=== PATIENT | female | born 1950 | race Caucasian/White ===

== ENCOUNTER 2021-01-15 11:13 | Outpatient (REF) | payer MEDICARE, SELFPAY | END 2021-01-15 11:14 | disposition home or self-care (01) | LOC: HO.LAB 11:13 | PROVIDERS: Visit Provider Nurse Practitioner Family | DX: N39.0 Urinary tract infection, site not specified (principal) | CPT/HCPCS: 87086 ==

== ENCOUNTER 2021-01-27 12:42 | Outpatient (REF) | payer MEDICARE, SELFPAY ==
[2021-01-27 14:12] LABS: MANUAL DIFF FLAG NO
[2021-01-27 14:25] LABS: Basophils Absolute Auto 0.1 X10*3/uL (0.0-0.2); Basophils Percent Auto 0.4 % (0-2); Eosinophils Absolute Auto 0.5 X10*3/uL (0.0-0.4); Eosinophils Percent Auto 2.3 % (0-4); Hematocrit 47.4 % (37-47); Hemoglobin 15.5 g/dl (12.0-16.0); Imm Gran Abs Auto 0.09 X10*3/uL (0.00-0.03); Imm Gran Pct Auto 0.5 % (0.0-0.4); Lymphocytes Absolute Auto 2.6 X10*3/uL (1.2-4.9); Lymphocytes Percent Auto 13.2 % (20-40); Mean Corpuscular HGB Conc 32.7 g/dl (31.0-35.0); Mean Corpuscular Hemoglobin 28.9 pg (27.0-33.0); Mean Corpuscular Volume 88.3 fL (80-98); Mean Platelet Volume 10.3 fL (9.4-12.3); Monocytes Absolute Auto 1.2 X10*3/uL (0.1-1.2); Monocytes Percent Auto 5.9 % (2-11); Neutrophils Absolute Auto 15.3 X10*3/uL (2.0-8.3); Neutrophils Percent Auto 77.7 % (45-73); Platelet Count 200 X10*3/uL (160-400); Red Blood Count 5.37 X10*6/uL (4.20-5.50); Red Cell Distribution Width 14.4 % (11.0-16.0); White Blood Count 19.7 X10*3/uL (4.8-10.8)
[2021-01-27 14:44] LABS: Anion Gap 14 (12-20); Blood Urea Nitrogen 12 mg/dL (9-16); Calcium 10.2 mg/dL (8.4-10.2); Carbon Dioxide 27 mmol/L (22-29); Chloride 99 mmol/L (96-108); Estimated Glomerular Filt Rate > 60; Glucose Random 84 mg/dL (60-115); Potassium 3.9 mmol/L (3.3-5.1); Sodium 136 mmol/L (135-145)
== END 2021-01-27 12:43 | disposition home or self-care (01) ==
LOC: HO.LAB 12:42
PROVIDERS: Visit Provider Nurse Practitioner Family
DX: N39.0 Urinary tract infection, site not specified (principal)
CPT/HCPCS: 36415; 80048; 85025; 87086

== ENCOUNTER 2021-01-27 13:00 | Outpatient (REF) | payer MEDICARE, SELFPAY | END 2021-01-27 13:01 | disposition home or self-care (01) | LOC: HO.HMGCLDS 13:00 | PROVIDERS: PCP Internal Medicine; Visit Provider Nurse Practitioner Family | DX: Z13.89 Encounter for screening for other disorder (principal) | CPT/HCPCS: 87086 ==

== ENCOUNTER 2021-04-17 06:02 | Outpatient (REF) | payer MEDICARE, SELFPAY ==
[2021-04-17 12:05] LABS: Alanine Aminotransferase 35 U/L (0-31); Anion Gap 13 (12-20); Blood Urea Nitrogen 12 mg/dL (9-16); Calcium 9.7 mg/dL (8.4-10.2); Carbon Dioxide 27 mmol/L (22-29); Chloride 105 mmol/L (96-108); Cholesterol 141 mg/dL; Estimated Glomerular Filt Rate > 60; Glucose Fasting 120 mg/dL (60-99); HDL Cholesterol 36 mg/dL; LDL Cholesterol Calculated 77 mg/dl; Potassium 4.4 mmol/L (3.3-5.1); Sodium 141 mmol/L (135-145); Triglycerides 144 mg/dL
[2021-04-17 12:28] LABS: Vitamin D 25-OH Total 52.7 ng/mL (>30)
== END 2021-04-17 06:03 | disposition home or self-care (01) ==
LOC: HO.HMGCLDS 06:02
PROVIDERS: PCP Internal Medicine; Visit Provider Internal Medicine
DX: I10 Essential (primary) hypertension (principal); E78.5 Hyperlipidemia, unspecified; E89.40 Asymptomatic postprocedural ovarian failure
CPT/HCPCS: 36415; 80048; 80061; 82306; 84460

== ENCOUNTER 2021-04-28 08:58 | Outpatient (REF) | payer MEDICARE, SELFPAY ==
--- NOTE | ~2021-04-28 | MM_ITS ---
EXAMINATION: MM SCREENING DIGITAL BREAST TOMOSYNTHESIS, BILATERAL CLINICAL INFORMATION: Screening. Asymptomatic. The lifetime risk of breast cancer based on the Tyrer-Cuzick Model is 3.1%. COMPARISON: Mammography: August 03, 2019 and studies dating back to October 07, 2009 TECHNIQUE: Digital breast tomosynthesis is performed in both the craniocaudal and mediolateral oblique views along with computer-aided detection (CAD). Synthesized 2D images are generated from the tomosynthesis. FINDINGS: The breasts are almost entirely fatty (ACR BI-RADS breast composition Category a). There are no significant masses, abnormal calcifications, or other abnormalities. MM/MM tomosynthesis screening BI IMPRESSION: There are no significant changes from prior study. ASSESSMENT: BI-RADS 1: Negative RECOMMENDATION: Routine annual mammography screening. This patient's information was entered into a reminder system with a target due date for their next mammogram.
== END 2021-04-28 08:59 | disposition home or self-care (01) ==
LOC: HO.MAMMO 08:58
PROVIDERS: Visit Provider Internal Medicine
DX: Z12.31 Encounter for screening mammogram for malignant neoplasm of breast (principal)
CPT/HCPCS: 77063; 77067

== ENCOUNTER 2021-10-20 11:36 | Outpatient (REF) | payer MEDICARE, SELFPAY ==
[2021-10-20 11:59] LABS: Binax Now Covid-19 Ag Negative (Negative)
[2021-10-20 12:00] LABS: Binax Internal Control QC Valid
== END 2021-10-20 11:37 | disposition home or self-care (01) ==
LOC: HO.HMGCLDS 11:36
PROVIDERS: PCP Internal Medicine; Visit Provider Internal Medicine
DX: Z13.89 Encounter for screening for other disorder (principal)

== ENCOUNTER 2021-12-28 07:16 | Outpatient (REF) | payer MEDICARE, SELFPAY ==
[2021-12-28 12:21] LABS: Alanine Aminotransferase 33 U/L (0-31); Aspartate Amino Transferase 17 U/L (5-31); Cholesterol 162 mg/dL; Glucose Fasting 124 mg/dL (60-99); HDL Cholesterol 44 mg/dL; LDL Cholesterol Calculated 90 mg/dl; Triglycerides 143 mg/dL
[2021-12-28 12:46] LABS: Vitamin D 25-OH Total 55.6 ng/mL (>30)
[2021-12-28 12:57] LABS: Estimated Average Glucose 120 mg/dL; Hemoglobin A1c % 5.8 %
== END 2021-12-28 07:17 | disposition home or self-care (01) ==
LOC: HO.HMGCLDS 07:16
PROVIDERS: Visit Provider Internal Medicine
DX: I10 Essential (primary) hypertension (principal); E78.5 Hyperlipidemia, unspecified; E89.40 Asymptomatic postprocedural ovarian failure; M85.89 Other specified disorders of bone density and structure, multiple sites; G43.909 Migraine, unspecified, not intractable, without status migrainosus; R73.01 Impaired fasting glucose
CPT/HCPCS: 36415; 80061; 82306; 82947; 83036; 84450; 84460

== ENCOUNTER → 2022-03-08 07:45 | Outpatient (BNVA) | payer MEDICARE, SELFPAY | PROVIDERS: PCP Internal Medicine; Visit Provider Physician Assistant | DX: Z12.11 Encounter for screening for malignant neoplasm of colon (principal); D12.6 Benign neoplasm of colon, unspecified | CPT/HCPCS: 99202 ==

== ENCOUNTER 2022-05-05 08:12 | Outpatient (REF) | payer MEDICARE, SELFPAY ==
--- NOTE | ~2022-05-05 | MM_ITS ---
EXAMINATION: BONE DENSITOMETRY CLINICAL INDICATION: Screening. COMPARISON: Previous BD dated 08/03/2019 and baseline BD dated 10/21/2006. TECHNIQUE: Using a Infectious DXA System (software version: 13.1) manufactured by [employer], dual-energy x-ray absorptiometry was performed of the lumbar spine and left hip. The images are of good technical quality. Summary results are attached. FINDINGS: AP SPINE L1-L4: Current: BMD 0.908 g/cm2, Z-score -0.3, T-score -2.3, osteopenia, 0.6% increase from previous, 3.8% increase from baseline (<5% change is not significant). Prior: BMD 0.903 g/cm2. Baseline: BMD 0.875 g/cm2. LEFT FEMUR, NECK: Current: BMD 0.829 g/cm2, Z-score 0.4, T-score -1.5, osteopenia. Prior: BMD 0.820 g/cm2. Baseline: BMD 0.891 g/cm2. LEFT FEMUR, TOTAL: Current: BMD 0.801 g/cm2, Z-score 0.1, T-score -1.6, osteopenia, 1.0% decrease from previous, 11.4% decrease from baseline (<5% change is not significant). Prior: BMD 0.809 g/cm2. Baseline: BMD 0.904 g/cm2. IDENTIFIED RISK FACTORS: Menopause, bilateral oophorectomy, hysterectomy, osteoporosis. HISTORY OF FRACTURE: None listed. MEDICATIONS: Calcium or multivitamin. Vitamin D. MM/XR DEXA axial skeleton IMPRESSION: 1. DIAGNOSIS: Osteopenia based on the lowest T-score value of -2.3 in the lumbar spine applying World Health Organization criteria. 2. 10-YEAR FRACTURE RISK PREDICTION, FRAX: Major osteoporotic fracture (clinical spine, forearm, hip or shoulder) 10.4%. Hip fracture 1.6%. 3. Treatment Recommendations: NOF guidelines recommend consideration for treatment in postmenopausal women and men age 50 and older presenting with the following: -A hip or vertebral (clinical or morphometric) fracture. -T-score less than or equal to -2.5 at the femoral neck or spine after appropriate evaluation to exclude secondary causes. -Low bone mass at the hip or spine and a 10-year fracture probability by FRAX of greater than or equal to 3% for hip fracture or greater than or equal to 20% for major osteoporotic fracture based on the [place] adapted WHO algorithm. 4. Other Recommendations: All treatment decisions require clinical judgment and consideration of individual patient factors, including patient preferences, comorbidities, previous drug use, risk factors not captured in the FRAX model (e.g. frailty, falls, vitamin D deficiency, increased bone turnover, interval significant decline in bone density) and possible under or overestimation of fracture risk by FRAX. Additional medical evaluation for secondary cause of low bone mineral density may be appropriate. FUTURE SCAN RECOMMENDATION: People with diagnosed cases of osteoporosis or at high risk for fracture should have regular bone mineral density tests. For patients eligible for Medicare, routine testing is allowed once every 2 years. The testing frequency can be increased to one year for patients who have rapidly progressing disease, those who are receiving or discontinuing medical therapy to restore bone mass, or have additional risk factors.
== END 2022-05-05 08:13 | disposition home or self-care (01) ==
LOC: HO.MAMMO 08:12
PROVIDERS: PCP Internal Medicine; Visit Provider Internal Medicine
DX: Z13.820 Encounter for screening for osteoporosis (principal); Z78.0 Asymptomatic menopausal state; M85.89 Other specified disorders of bone density and structure, multiple sites
CPT/HCPCS: 77080

== ENCOUNTER 2022-07-01 06:30 | Outpatient (REF) | payer MEDICARE, SELFPAY ==
[2022-07-01 11:36] LABS: Alanine Aminotransferase 37 U/L (0-31); Anion Gap 15 (12-20); Aspartate Amino Transferase 23 U/L (5-31); Blood Urea Nitrogen 12 mg/dL (9-16); Calcium 9.6 mg/dL (8.4-10.2); Carbon Dioxide 26 mmol/L (22-29); Chloride 101 mmol/L (96-108); Cholesterol 149 mg/dL; Estimated Glomerular Filt Rate > 60; Glucose Fasting 107 mg/dL (60-99); HDL Cholesterol 42 mg/dL; LDL Cholesterol Calculated 74 mg/dl; Potassium 4.5 mmol/L (3.3-5.1); Sodium 137 mmol/L (135-145); Triglycerides 169 mg/dL
[2022-07-01 12:01] LABS: Vitamin D 25-OH Total 55.2 ng/mL (>30)
== END 2022-07-01 06:31 | disposition home or self-care (01) ==
LOC: HO.HMGCLDS 06:30
PROVIDERS: PCP Internal Medicine; Visit Provider Internal Medicine
DX: E78.5 Hyperlipidemia, unspecified (principal); I10 Essential (primary) hypertension; M85.89 Other specified disorders of bone density and structure, multiple sites; R73.01 Impaired fasting glucose
CPT/HCPCS: 36415; 80048; 80061; 82306; 84450; 84460

== ENCOUNTER 2022-12-24 08:34 | Outpatient (REF) | payer MEDICARE, SELFPAY ==
--- NOTE | ~2022-12-24 | MM_ITS ---
EXAMINATION: MM SCREENING DIGITAL BREAST TOMOSYNTHESIS, BILATERAL CLINICAL INFORMATION: Screening. Asymptomatic. The lifetime risk of breast cancer based on the Tyrer-Cuzick Model is 3%. COMPARISON: Mammography: 04/28/2021, 08/03/2019, 07/12/2018 TECHNIQUE: Digital breast tomosynthesis is performed in both the craniocaudal and mediolateral oblique views along with computer-aided detection (CAD). Synthesized 2D images are generated from the tomosynthesis. FINDINGS: There are scattered areas of fibroglandular density (ACR BI-RADS breast composition Category b). There are no significant masses, abnormal calcifications, or other abnormalities. No architectural abnormality or developing density or significant change from prior studies. The axilla are unremarkable. There are some dermal lesions overlying both breasts. MM/MM tomosynthesis screening BI IMPRESSION: No mammographic evidence of malignancy. ASSESSMENT: BI-RADS 2: Benign RECOMMENDATION: Routine annual mammography screening. This patient's information was entered into a reminder system with a target due date for their next mammogram.
== END 2022-12-24 08:35 | disposition home or self-care (01) ==
LOC: HO.MAMMO 08:34
PROVIDERS: PCP Internal Medicine; Visit Provider Internal Medicine
DX: Z12.31 Encounter for screening mammogram for malignant neoplasm of breast (principal)
CPT/HCPCS: 77063; 77067

== ENCOUNTER 2023-01-03 06:31 | Outpatient (REF) | payer MEDICARE, SELFPAY ==
[2023-01-03 11:54] LABS: Alanine Aminotransferase 34 U/L (0-31); Anion Gap 14 (12-20); Aspartate Amino Transferase 17 U/L (5-31); Blood Urea Nitrogen 14 mg/dL (9-16); Calcium 9.5 mg/dL (8.4-10.2); Carbon Dioxide 27 mmol/L (22-29); Chloride 106 mmol/L (96-108); Cholesterol 147 mg/dL; Estimated Average Glucose 117 mg/dL; Estimated Glomerular Filt Rate > 60; Glucose Fasting 133 mg/dL (60-99); HDL Cholesterol 40 mg/dL; Hemoglobin A1C 144.8301 umol/L; Hemoglobin A1c % 5.7 %; LDL Cholesterol Calculated 70 mg/dl; Potassium 4.6 mmol/L (3.3-5.1); Sodium 142 mmol/L (135-145); Triglycerides 185 mg/dL; Vitamin D 25-OH Total 73.8 ng/mL (>30)
== END 2023-01-03 06:32 | disposition home or self-care (01) ==
LOC: HO.HMGCLDS 06:31
PROVIDERS: PCP Internal Medicine; Visit Provider Internal Medicine
DX: R73.01 Impaired fasting glucose (principal); M85.89 Other specified disorders of bone density and structure, multiple sites; M89.40 Other hypertrophic osteoarthropathy, unspecified site; E78.5 Hyperlipidemia, unspecified; I10 Essential (primary) hypertension
CPT/HCPCS: 36415; 80048; 80061; 82306; 83036; 84450; 84460

== ENCOUNTER 2023-07-05 10:50 | Outpatient (AMB) | payer MEDICARE, SELFPAY ==
--- NOTE | 2023-07-05 11:15 | A.OFFPC_ITS ---
Vital Signs 07/05/23 11:21 Height 4 ft 11 in Weight 129 lb BMI 26.1 BP 130/70 Blood Pressure Location Rt brachial Position Sitting Pulse 73 Pulse Source Pulse Oximeter Pulse Oximetry (%) 95 Oxygen Delivery Method Room Air Intake Visit Reasons: PE Intake Note: Pt is here today for her PE Allergies codeine [CODEINE] Allergy (Unknown, Verified 01/04/24 11:12) NAUSEA & VOMITING alendronate sodium [Fosamax] Adverse Reaction (Unknown, Verified 01/04/24 11:12) chest pain sumatriptan Adverse Reaction (Unknown, Verified 01/04/24 11:12) chest discomfort Medication List - Last Reconciled 07/05/23 by Sunshine Allen MD ascorbic acid (vitamin C) 1 g PO Q6H atorvastatin 20 mg PO DAILY [id number]-tushjjdxmbwes-jmse 50-300-40 mg 1 cap PO Q8H PRN cholecalciferol (vitamin D3) 6,000 units PO DAILY fluticasone propionate 50 mcg/actuation (Flonase Allergy Relief) 2 sprays intranasal DAILY folic acid 1 mg PO DAILY lactulose 15 mL PO DAILY PRN nortriptyline 50 mg PO BEDTIME propranolol ER 120 mg PO DAILY vitamin B complex 1 tab PO DAILY vitamin E (dl, acetate) 450 mg PO DAILY Tobacco use date assessed: 07/05/23 Fall risk assessment: No Falls in past year Last assessed Fall Risk: 07/05/23 Dental Screening Dental Screen Date: 07/05/23 Did you have a dental visit in the last 12 months?: No Did you have a dental problem in the last 6 months where you did not have access to dental care?: No Was dental information given to patient?: Patient has dentist HPI PE HPI Details Sade is here today for physical exam. She is taking atorvastatin 20 mg daily for control of her lipids. And takes Fioricet as needed for control of migraine headaches with propranolol ER 120 mg daily and nortriptyline 50 mg at bedtime for migraine prophylaxis. She is up-to-date with her screening mammogram done earlier this year with negative findings and showed osteopenia in lumbar spine on bone density scan done in 2021, no history of fractures. She stays active, does a lot of yd work and housework still History of adenomatous polyp in colon in the past on last colonoscopy done in [address] Foss., overdue for repeat colonoscopy. [facility] Medical History Chronic nasal congestion Impaired fasting glucose Migraine Osteopenia of multiple sites Tubular adenoma of colon Surgical menopause Dyslipidemia Essential hypertension Surgical History History of section Teratoma of left ovary History of total hysterectomy Family History Father CHF (congestive heart failure) Alcoholic Mother Diabetes mellitus Brother Myocardial infarction Brother Afib Carotid artery stenosis Maternal Grandmother Diabetes mellitus Brother No problems noted. Son No problems noted. Son No problems noted. Son Substance abuse Daughter No problems noted. Daughter No problems noted. Social History Housing: House Patient Tobacco Use Status: Former Tobacco user Tobacco use type: Cigarette Cigarette Packs Per Day: 1 Years Smoked: 20 e-Cigarette/Vaping Use: Never Used Second Hand Smoke Exposure: No service: No Current occupational status: retired Cognitive needs: No Hearing needs: No Vision needs: No Questionnaire PHQ-9 Over the last 2 weeks, how often have you been bothered by any of the following problems? 1. Little interest or pleasure in doing things: not at all 2. Feeling down, depressed, or hopeless: not at all 3. Trouble falling or staying asleep, or sleeping too much: not at all 4. Feeling tired or having little energy: not at all 5. Poor appetite or overeating: not at all 6. Feeling bad about yourself - or that you are a failure or have let yourself or your family down: not at all 7. Trouble concentrating on things, such as reading the newspaper or watching television: not at all 8. Moving or speaking so slowly that other people could have noticed. Or the opposite - being so fidgety or restless that you have been moving around a lot more than usual: not at all 9. Thoughts that you would be better off or of hurting yourself in some way: not at all Total score: 0 Depression Screening Interpretation: Negative Depression Screening Done: Yes 19336 - PHQ-9 Billing: Yes Source: Developed by Drs. James Crocker, Yamilet Tadeo, Ernesto Chand and colleagues, with an educational zita from [employer]. Thrive Questionnaire Date Thrive assessed: 07/05/23 I am a: Patient What is your living situation today?: I have a steady place to live Within the past 12 months, did the food you bought not last and you didn't have the money to get more?: Never true Within the past 12 months, did you worry whether your food would run out before you got money to buy more?: Never true Do you have trouble paying for medicines?: No Do you have trouble getting transportation to medical appointments?: No Do you have trouble paying your heating and electricity bill?: No Do you have trouble taking care of your child, family member or friend?: No Do you have trouble with day-to-day activities such as bathing, preparing meals, shopping, managing finances, etc.?: No Are you currently unemployed and looking for a job?: No Are you interested in more education?: No AUDIT C Alcohol Use Questionnaire (AUDIT-C) 1. How often do you have a drink containing alcohol?: Never Total Score: 0 GILMA-7 AMB Questionnaire GIMLA-7 Date GILMA - 7 assessed: 01/04/23 Feeling nervous, anxious, or on edge: 1 = Several days Not being able to stop or control worryin = Not at all Worrying too much about different things: 0 = Not at all Trouble relaxin = Not at all Being so restless that it is hard to sit still: 0 = Not at all Becoming easily annoyed or irritable: 0 = Not at all Feeling afraid as if something awful might happen: 1 = Several days Total GILMA-7 score (0-4 normal; 5-9 mild; 10-14 moderate; 15-21 severe): 2 Source: Developed by Drs. James Crocker, Yamilet Tadeo, Ernesto Chand and colleagues, with an educational zita from [employer]. GILMA-7 Assessment Billing GILMA-7 Assessment Tool: GILMA-7 Assessment 66950 Review of Systems Const Denies body aches, Denies fatigue, Denies fever(s) and Denies weakness ENT Denies dizziness, Denies nasal congestion, Denies nasal discharge and Denies sore throat Card Denies chest pain, Denies lightheadedness, Denies palpitations and Denies dyspnea Resp Denies chest congestion, Denies cough and Denies dyspnea GI Denies abdominal pain, Denies change in bowel habits and Denies heartburn Reports no additional complaints Musc Reports no additional complaints Skin/Breast Denies breast pain, Denies breast mass and Denies rash Neuro Denies dizziness and Denies weakness Psych Reports no additional complaints Endo Denies fatigue, Denies polydipsia, Denies polyuria and Denies palpitations Jayme/Lymph Reports no additional complaints Aller/Immun Reports no additional complaints Physical exam (Primary Care) Vital Signs: Last Vital Signs Pulse 73 07/05/23 11:21 BP 130/70 07/05/23 11:21 Pulse Ox 95 07/05/23 11:21 Oxygen Delivery Method Room Air 07/05/23 11:21 BMI result Body Mass Index 26.1 Tobacco/Smoking Status: Tobacco use Status Tobacco use date assessed 07/05/23 07/05/23 11:23 Patient Tobacco Use Status Former Tobacco user 07/05/23 11:15 Tobacco use type Cigarette 07/05/23 11:15 e-Cigarette/Vaping Use Never Used 07/05/23 11:15 PHQ-9: PHQ-9 Score PHQ-9: Total score 0 07/05/23 12:05 Depression Screening Interpretation: Negative Thrive Assessment: Date of Thrive Assessment Date Thrive assessed 07/05/23 07/05/23 11:23 Const General: comfortable and no acute distress Orientation/consciousness: patient oriented x3 [facility] General nose exam: Normal external nose present, Normal nares present and No nasal discharge present Face and sinus: Yes face symmetric Eyes General: appearance normal, both eyes and all related structures Neck Neck: Yes full ROM, Yes no lymphadenopathy and Yes supple Thyroid: Thyroid normal Resp Auscultation: clear to auscultation bilaterally Cardio Rate: regular rate Rhythm: regular rhythm Heart sounds: S1 normal heart sound present and S2 normal heart sound present GI Palpation (GI): Soft to palpation, nontender, no guarding and no masses Auscultation: normal bowel sounds Neuro General: patient oriented x3, gait normal, moves all extremities, no focal motor deficits and CN's II-XI intact bilaterally Extrem General: Yes full ROM, Yes no joint enlargement, Yes no pedal edema and Yes normal gait Immunizations pneumoc 20-lacey conj-dip cr(PF) 0.5 mL IM syringe Performing Provider: Sunshine Allen MD Performing Location: [facility] Administered by: Brook Brooks CMA on 07/05/23 12:05 Dose Route Admin Location Dispensed Lot Number Expiration Date NDC Drier Tender 0.5 mL IM Right Deltoid 0.5 mL [id number] 07/26/24 0771-8011-45 [employer]/PFIZER VIS Given Date VIS Provided VIS Publication Date 07/05/23 Single Vaccine 21 Eligibility Eligibility Date Funding Source Not VFC Eligible 07/05/23 Private Assessment and Plan Assessment & Plan (1) Annual visit for general adult medical examination with abnormal findings: Code(s): Z00.01 - Encounter for general adult medical examination with abnormal findings Plan: Will check appropriate labs. She gets regular eye exams at [facility]. Take adequate calcium in diet and vitamin-D 3 at 2000 IU per cap once a day, in addition to weight-bearing exercises to help maintain good muscle tone and weight control. Instructed to do self-breast exam, and continue to get yearly mammogram, currently up-to-date, will repeat another bone density scan next year . Patient already received her COVID booster for this year and flu shot, Prevnar 20 given today. Declines getting shingles vaccine . (2) Tubular adenoma of colon: Comment: Overdue polyp surveillance-reinforced importance of follow through Code(s): D12.6 - Benign neoplasm of colon, unspecified Plan: GI consult obtained, patient prefers female provider (3) Impaired fasting glucose: Code(s): R73.01 - Impaired fasting glucose Plan: Your fasting blood sugars elevated above 100 mg/dL. Impaired glucose metabolism O2 at risk for developing diabetes mellitus type 2, as well as heart attack and stroke later on. Lifestyle changes at just weight loss, healthy eating habits, and regular exercise are important, and can prevent the progression to diabetes (4) Migraine: Code(s): G43.909 - Migraine, unspecified, not intractable, without status migrainosus Qualifiers: Intractability: not intractable Migraine type: unspecified Status migrainosus presence: without status migrainosus Qualified Code(s): G43.909 - Migraine, unspecified, not intractable, without status migrainosus Plan: Currently on Fioricet taken as needed (5) Osteopenia of multiple sites: Code(s): M85.89 - Other specified disorders of bone density and structure, multiple sites Plan: Advised to do regular weight-bearing exercise, continue taking calcium from dietary sources and continue vitamin-D 3 supplements. Will repeat another bone density scan next year (6) Dyslipidemia: Code(s): E78.5 - Hyperlipidemia, unspecified Plan: Continue atorvastatin, fasting lipid panel ordered. Reminded to get her fasting labs done already ordered and in lab (7) Essential hypertension: Code(s): I10 - Essential (primary) hypertension Plan: Blood pressure at goal of less than 130/80. Continue with current medication. Reinforced importance of following a low sodium diet, getting regular exercise, and lowering stress levels. Orders: Orders Pneumococcal 20 Immunization 07/05/23 Z23 - Encounter for immunization Complete Blood Count Auto Diff 07/05/23 Z00.01 - Encounter for general adult medical examination with abnormal findings Referrals Gastroenterology Referral D12.6 - Benign neoplasm of colon, unspecified Coding Level of Care Code Est Pt Prev Care >65y(75858) Diagnoses Annual visit for general adult medical examination with abnormal findings Z00.01 Tubular adenoma of colon D12.6 Impaired fasting glucose R73.01 Migraine without status migrainosus, not intractable, unspecified migraine type G43.909 Intractability: not intractable Migraine type: unspecified Status migrainosus presence: without status migrainosus Osteopenia of multiple sites M85.89 Dyslipidemia E78.5 Essential hypertension I10 Additional Codes GILMA-7 Assessment Billing - GILMA-7 Assessment Tool: GILMA-7 Assessment 60206 ([id number])
[2023-07-05 11:21] VITALS: BP 130/70; PULSE 73; O2SAT 95; BMI 26.1
== END 2023-07-05 12:08 | disposition home or self-care (01) ==
PROVIDERS: Visit Provider Internal Medicine
DX: Z00.01 Encounter for general adult medical examination with abnormal findings (principal); D12.6 Benign neoplasm of colon, unspecified; R73.01 Impaired fasting glucose; G43.909 Migraine, unspecified, not intractable, without status migrainosus; M85.89 Other specified disorders of bone density and structure, multiple sites; E78.5 Hyperlipidemia, unspecified; I10 Essential (primary) hypertension
CPT/HCPCS: 90471; 90677; 99499

== ENCOUNTER 2023-10-31 07:33 | Outpatient (REF) | payer MEDICARE, SELFPAY ==
[2023-10-31 11:39] LABS: MANUAL DIFF FLAG NO
[2023-10-31 11:42] LABS: Basophils Percent Auto 0.5 % (0-2); Eosinophils Absolute Auto 0.4 X10*3/uL (0.0-0.4); Hematocrit 42.2 % (37.0-47.0); Hemoglobin 14.3 g/dl (12.0-16.0); Imm Gran Abs Auto 0.01 X10*3/uL (0.00-0.03); Imm Gran Pct Auto 0.2 % (0.0-0.4); Lymphocytes Absolute Auto 2.3 X10*3/uL (1.2-4.9); Lymphocytes Percent Auto 36.9 % (20-40); Mean Corpuscular HGB Conc 33.9 g/dl (31.0-35.0); Mean Corpuscular Volume 85.6 fL (80.0-98.0); Mean Platelet Volume 10.3 fL (9.4-12.3); Monocytes Absolute Auto 0.6 X10*3/uL (0.1-1.2); Monocytes Percent Auto 10.1 % (2-11); Neutrophils Absolute Auto 2.9 x10*3/uL (2.0-8.3); Neutrophils Percent Auto 46.3 % (45-73); Platelet Count 183 X10*3/uL (160-400); Red Blood Count 4.93 X10*6/uL (4.20-5.50); Red Cell Distribution Width 14.1 % (11.0-16.0); White Blood Count 6.3 X10*3/uL (4.8-10.8)
[2023-10-31 12:03] LABS: Estimated Average Glucose 114 mg/dL; Hemoglobin A1c % 5.6 % (<6.0)
[2023-10-31 12:17] LABS: Alanine Aminotransferase 31 U/L (0-31); Anion Gap 15 (12-20); Aspartate Amino Transferase 16 U/L (5-31); Blood Urea Nitrogen 12 mg/dL (9-16); Calcium 9.6 mg/dL (8.4-10.2); Carbon Dioxide 24 mmol/L (22-29); Chloride 106 mmol/L (96-108); Cholesterol 155 mg/dL (<200); Estimated Glomerular Filt Rate > 60; Glucose Fasting 115 mg/dL (60-99); HDL Cholesterol 41 mg/dL (>40); LDL Cholesterol Calculated 78 mg/dL (<100); Potassium 4.2 mmol/L (3.3-5.1); Sodium 141 mmol/L (135-145); Triglycerides 180 mg/dL (<150)
== END 2023-10-31 07:34 | disposition home or self-care (01) ==
LOC: HO.HMGCLDS 07:33
PROVIDERS: PCP Internal Medicine; Visit Provider Internal Medicine
DX: Z00.01 Encounter for general adult medical examination with abnormal findings (principal); I10 Essential (primary) hypertension; R73.01 Impaired fasting glucose; E78.5 Hyperlipidemia, unspecified
CPT/HCPCS: 36415; 80048; 80061; 83036; 84450; 84460; 85025

== ENCOUNTER 2024-01-04 10:20 | Outpatient (AMB) | payer MEDICARE, SELFPAY ==
--- NOTE | 2024-01-04 10:40 | A.OFFPC_ITS ---
Vital Signs 01/04/24 10:43 Height 4 ft 11 in Weight 131 lb BMI 26.5 BP 122/80 Blood Pressure Location Rt brachial Position Sitting Pulse 85 Pulse Source Pulse Oximeter Pulse Oximetry (%) 95 Oxygen Delivery Method Room Air Intake Visit Reasons: 6 month follow up Intake Note: Pt is here today for her 6 months f/u Allergies codeine [CODEINE] Allergy (Unknown, Verified 01/04/24 11:12) NAUSEA & VOMITING alendronate sodium [Fosamax] Adverse Reaction (Unknown, Verified 01/04/24 11:12) chest pain sumatriptan Adverse Reaction (Unknown, Verified 01/04/24 11:12) chest discomfort Medication List - Last Reconciled 01/04/24 by Sunshine Allen MD ascorbic acid (vitamin C) 1 g PO Q6H atorvastatin 20 mg PO DAILY kjayzxsmok-udfqqgtndszdx-bwro 50-300-40 mg 1 cap PO Q8H PRN cholecalciferol (vitamin D3) 6,000 units PO DAILY fluticasone propionate 50 mcg/actuation (Flonase Allergy Relief) 2 sprays intranasal DAILY folic acid 1 mg PO DAILY lactulose 15 mL PO DAILY PRN nortriptyline 50 mg PO BEDTIME propranolol ER 120 mg PO DAILY vitamin B complex 1 tab PO DAILY vitamin E (dl, acetate) 450 mg PO DAILY Tobacco use date assessed: 01/04/24 Fall risk assessment: No Falls in past year Last assessed Fall Risk: 01/04/24 Dental Screening Dental Screen Date: 01/04/24 Did you have a dental visit in the last 12 months?: No Was dental information given to patient?: Patient declined HPI 6 month follow up HPI Details 73-year-old lady here today for follow-u p on her hypertension, hyperlipidemia and migraine headaches.. Has been taking her medications as directed, compliant with taking it and adhering to healthy eating habits and getting regular exercise. Has been feeling well with no new complaints at present time. [facility] Medical History Chronic nasal congestion Impaired fasting glucose Migraine Osteopenia of multiple sites Tubular adenoma of colon Surgical menopause Dyslipidemia Essential hypertension Surgical History History of section Teratoma of left ovary History of total hysterectomy Family History Father CHF (congestive heart failure) Alcoholic Mother Diabetes mellitus Brother Myocardial infarction Brother Afib Carotid artery stenosis Maternal Grandmother Diabetes mellitus Brother No problems noted. Son No problems noted. Son No problems noted. Son Substance abuse Daughter No problems noted. Daughter No problems noted. Social History Housing: House Patient Tobacco Use Status: Former Tobacco user Tobacco use type: Cigarette Cigarette Packs Per Day: 1 Years Smoked: 20 e-Cigarette/Vaping Use: Never Used Second Hand Smoke Exposure: No service: No Current occupational status: retired Cognitive needs: No Hearing needs: No Vision needs: No Questionnaire PHQ-9 Over the last 2 weeks, how often have you been bothered by any of the following problems? 1. Little interest or pleasure in doing things: not at all 2. Feeling down, depressed, or hopeless: not at all 3. Trouble falling or staying asleep, or sleeping too much: not at all 4. Feeling tired or having little energy: not at all 5. Poor appetite or overeating: not at all 6. Feeling bad about yourself - or that you are a failure or have let yourself or your family down: not at all 7. Trouble concentrating on things, such as reading the newspaper or watching television: not at all 8. Moving or speaking so slowly that other people could have noticed. Or the opposite - being so fidgety or restless that you have been moving around a lot more than usual: not at all 9. Thoughts that you would be better off or of hurting yourself in some way: not at all Total score: 0 Depression Screening Interpretation: Negative Depression Screening Done: Yes 85593 - PHQ-9 Billing: Yes Source: Developed by Drs. James Crocker, Yamilet Tadeo, Ernesto Chand and colleagues, with an educational zita from [employer]. Thrive Questionnaire Date Thrive assessed: 01/04/24 I am a: Patient What is your living situation today?: I have a steady place to live Within the past 12 months, did the food you bought not last and you didn't have the money to get more?: Never true Within the past 12 months, did you worry whether your food would run out before you got money to buy more?: Never true Do you have trouble paying for medicines?: No Do you have trouble getting transportation to medical appointments?: No Do you have trouble paying your heating and electricity bill?: No Do you have trouble taking care of your child, family member or friend?: No Do you have trouble with day-to-day activities such as bathing, preparing meals, shopping, managing finances, etc.?: No Are you currently unemployed and looking for a job?: No Are you interested in more education?: No THRIVE Score: 0 AUDIT C Alcohol Use Questionnaire (AUDIT-C) 1. How often do you have a drink containing alcohol?: Never 3. How often do you have six or more drinks on one occasion?: Never Total Score: 0 GILMA-7 AMB Questionnaire GILMA-7 Date GILMA - 7 assessed: 01/04/24 Feeling nervous, anxious, or on edge: 1 = Several days Not being able to stop or control worryin = Several days Worrying too much about different things: 0 = Not at all Trouble relaxin = Not at all Being so restless that it is hard to sit still: 0 = Not at all Becoming easily annoyed or irritable: 0 = Not at all Feeling afraid as if something awful might happen: 1 = Several days Total GILMA-7 score (0-4 normal; 5-9 mild; 10-14 moderate; 15-21 severe): 3 Source: Developed by Drs. James Crocker, Yamilet Tadeo, Ernesto Chand and colleagues, with an educational zita from [employer]. Review of Systems Const Denies body aches, Denies fatigue, Denies fever(s) and Denies weakness ENT Denies dizziness, Denies nasal congestion, Denies nasal discharge and Denies sore throat Card Denies chest pain, Denies lightheadedness, Denies palpitations and Denies dyspnea Resp Denies chest congestion, Denies cough and Denies dyspnea GI Denies abdominal pain, Denies change in bowel habits and Denies heartburn Reports no additional complaints Musc Reports no additional complaints Neuro Denies dizziness and Denies weakness Endo Denies fatigue, Denies polydipsia, Denies polyuria and Denies palpitations Jayme/Lymph Reports no additional complaints Aller/Immun Reports no additional complaints Physical exam (Primary Care) Vital Signs: Last Vital Signs Pulse 85 01/04/24 10:43 BP 122/80 01/04/24 10:43 Pulse Ox 95 01/04/24 10:43 Oxygen Delivery Method Room Air 01/04/24 10:43 BMI result Body Mass Index 26.5 Tobacco/Smoking Status: Tobacco use Status Tobacco use date assessed 01/04/24 01/04/24 10:44 Patient Tobacco Use Status Former Tobacco user 01/04/24 10:44 Tobacco use type Cigarette 01/04/24 10:44 e-Cigarette/Vaping Use Never Used 01/04/24 10:44 PHQ-9: PHQ-9 Score PHQ-9: Total score 0 01/04/24 11:28 Depression Screening Interpretation: Negative Thrive Assessment: Date of Thrive Assessment Date Thrive assessed 01/04/24 01/04/24 10:44 Const General: comfortable and no acute distress Orientation/consciousness: patient oriented x3 [facility] General nose exam: Normal external nose present, Normal nares present and No nasal discharge present Face and sinus: Yes face symmetric Eyes General: appearance normal, both eyes and all related structures Neck Neck: Yes full ROM, Yes no lymphadenopathy and Yes supple Thyroid: Thyroid normal Resp Auscultation: clear to auscultation bilaterally Cardio Rate: regular rate Rhythm: regular rhythm Heart sounds: S1 normal heart sound present and S2 normal heart sound present GI Palpation (GI): Soft to palpation, nontender, no guarding and no masses Auscultation: normal bowel sounds Neuro General: patient oriented x3, gait normal, moves all extremities, no focal motor deficits and CN's II-XI intact bilaterally Extrem General: Yes full ROM, Yes no joint enlargement, Yes no pedal edema and Yes normal gait Assessment and Plan Assessment & Plan (1) Dyslipidemia: Code(s): E78.5 - Hyperlipidemia, unspecified Plan: Ordered fasting lipid panel and liver enzymes, meantime continue with current dose of atorvastatin 20 mg once a day, in addition to adhering to healthy eating habits and getting regular exercise at least 15 minutes of cardio 3 to 4 times a week. (2) Essential hypertension: Code(s): I10 - Essential (primary) hypertension Plan: Blood pressure at goal of less than 130/80. Continue with current medication. Reinforced importance of following a low sodium diet, getting regular exercise, and lowering stress levels. (3) Surgical menopause: Code(s): E89.40 - Asymptomatic postprocedural ovarian failure Plan: Will check vitamin-D level (4) Migraine: Code(s): G43.909 - Migraine, unspecified, not intractable, without status migrainosus Qualifiers: Intractability: not intractable Migraine type: unspecified Status carlos rainosus presence: without status migrainosus Qualified Code(s): G43.909 - Migraine, unspecified, not intractable, without status migrainosus Plan: Takes propranolol ER 120 mg daily and nortriptyline 50 mg at bedtime, taking iuqvtvzi-fdizoqdiyoriu-[id number], advised to take it only as needed for episodes of acute migraine headaches, and not to take it on a regular basis. Orders: Orders Varicella IgG Antibody 01/04/24 Z78.0 - Asymptomatic menopausal state, Z01.84 - Encounter for antibody response examination Vitamin D 25-OH Total 01/04/24 Z78.0 - Asymptomatic menopausal state, Z01.84 - Encounter for antibody response examination Comprehensive Addy. Panel Fast 01/04/24 R73.01 - Impaired fasting glucose, G43.909 - Migraine, unspecified, not intractable, without status migrainosus, M85.89 - Other specified disorders of bone density and structure, multiple sites, E89.40 - Asymptomatic postprocedural ovarian failure, E78.5 - Hyperlipidemia, unspecified, I10 - Essential (primary) hypertension Lipid Panel 01/04/24 R73.01 - Impaired fasting glucose, G43.909 - Migraine, unspecified, not intractable, without status migrainosus, M85.89 - Other specified disorders of bone density and structure, multiple sites, E89.40 - Asymptomatic postprocedural ovarian failure, E78.5 - Hyperlipidemia, unspecified, I10 - Essential (primary) hypertension Vitamin D 25-OH Total 06/26/24 R73.01 - Impaired fasting glucose, G43.909 - Migraine, unspecified, not intractable, without status migrainosus, M85.89 - Other specified disorders of bone density and structure, multiple sites, E89.40 - Asymptomatic postprocedural ovarian failure, E78.5 - Hyperlipidemia, unspecified, I10 - Essential (primary) hypertension Coding Level of Care Code Est Pt Level 4 (40788) Complex EM visit Add On G2211 Diagnoses Dyslipidemia E78.5 Essential hypertension I10 Surgical menopause E89.40 Migraine without status migrainosus, not intractable, unspecified migraine type G43.909 Intractability: not intractable Migraine type: unspecified Status migrainosus presence: without status migrainosus
[2024-01-04 10:43] VITALS: BP 122/80; PULSE 85; O2SAT 95; BMI 26.5
== END 2024-01-04 12:35 | disposition home or self-care (01) ==
PROVIDERS: PCP Internal Medicine; Visit Provider Internal Medicine
DX: E78.5 Hyperlipidemia, unspecified (principal); I10 Essential (primary) hypertension; E89.40 Asymptomatic postprocedural ovarian failure; G43.909 Migraine, unspecified, not intractable, without status migrainosus
CPT/HCPCS: 99214; G2211

== ENCOUNTER 2024-01-04 11:28 | Outpatient (REF) | payer MEDICARE, SELFPAY ==
[2024-01-04 14:36] LABS: Alanine Aminotransferase 39 U/L (0-31); Albumin Level 4.6 g/dL (3.5-5.0); Alkaline Phosphatase 74 U/L (39-117); Anion Gap 14 (12-20); Aspartate Amino Transferase 25 U/L (5-31); Bilirubin Total 0.5 mg/dL (0.0-1.0); Blood Urea Nitrogen 12 mg/dL (9-16); Calcium 9.7 mg/dL (8.4-10.2); Carbon Dioxide 28 mmol/L (22-29); Chloride 105 mmol/L (96-108); Cholesterol 155 mg/dL (<200); Estimated Glomerular Filt Rate > 60; Glucose Fasting 116 mg/dL (60-99); HDL Cholesterol 40 mg/dL (>40); LDL Cholesterol Calculated 72 mg/dL (<100); Potassium 4.3 mmol/L (3.3-5.1); Sodium 143 mmol/L (135-145); Total Protein 7.4 g/dL (6.5-8.0); Triglycerides 215 mg/dL (<150)
[2024-01-04 14:37] LABS: Vitamin D 25-OH Total 105.9 ng/mL (>30)
== END 2024-01-04 11:29 | disposition home or self-care (01) ==
LOC: HO.HMGCLDS 11:28
PROVIDERS: PCP Internal Medicine; Visit Provider Internal Medicine
DX: Z01.84 Encounter for antibody response examination (principal); R73.01 Impaired fasting glucose; G43.909 Migraine, unspecified, not intractable, without status migrainosus; M85.89 Other specified disorders of bone density and structure, multiple sites; E89.40 Asymptomatic postprocedural ovarian failure; E78.5 Hyperlipidemia, unspecified; I10 Essential (primary) hypertension; Z78.0 Asymptomatic menopausal state
CPT/HCPCS: 36415; 80053; 80061; 82306; 86787

== ENCOUNTER 2024-02-14 07:14 | Outpatient (REF) | payer MEDICARE, SELFPAY | END 2024-02-14 07:15 | disposition home or self-care (01) | LOC: HO.MAMMO 07:14 | PROVIDERS: PCP Internal Medicine; Visit Provider Internal Medicine | DX: Z12.31 Encounter for screening mammogram for malignant neoplasm of breast (principal) | CPT/HCPCS: 77063; 77067 ==

== ENCOUNTER → 2024-02-14 07:30 | Outpatient (BNV) | payer MEDICARE, SELFPAY | PROVIDERS: PCP Internal Medicine; Visit Provider Radiology Diagnostic Radiology | DX: Z12.31 Encounter for screening mammogram for malignant neoplasm of breast (principal) | CPT/HCPCS: 77063; 77067 ==

== ENCOUNTER 2024-07-18 10:50 | Outpatient (AMB) | payer MEDICARE, SELFPAY ==
[2024-07-18 10:58] VITALS: BP 138/80; PULSE 77; O2SAT 95; BMI 26.9
--- NOTE | 2024-07-18 10:58 | A.OFFPC_ITS ---
Vital Signs 07/18/24 10:58 Height 4 ft 11 in Weight 133 lb BMI 26.9 BP 138/80 Blood Pressure Location Rt brachial Position Sitting Pulse 77 Pulse Source Pulse Oximeter Pulse Oximetry (%) 95 Oxygen Delivery Method Room Air Intake Visit Reasons: PE Intake Note: Pt is here today for her PE: Last mammogram 02/14/24, bone density scan 05/05/22, colonoscopy 12/21/11 Allergies codeine [CODEINE] Allergy (Unknown, Verified 07/18/24 11:16) NAUSEA & VOMITING alendronate sodium [Fosamax] Adverse Reaction (Unknown, Verified 07/18/24 11:16) chest pain sumatriptan Adverse Reaction (Unknown, Verified 07/18/24 11:16) chest discomfort Medication List - Last Reconciled 07/18/24 by Sunshine Allen MD ascorbic acid (vitamin C) 1 g PO Q6H atorvastatin 20 mg PO DAILY pltttwdmfk-ntiwurrkeotaf-aqcx 50-300-40 mg 1 cap PO Q8H PRN cholecalciferol (vitamin D3) 6,000 units PO DAILY fluticasone propionate 50 mcg/actuation (Flonase Allergy Relief) 2 sprays intranasal DAILY folic acid 1 mg PO DAILY lactulose 15 mL PO DAILY PRN nortriptyline 50 mg PO BEDTIME propranolol ER 120 mg PO DAILY vitamin B complex 1 tab PO DAILY vitamin E (dl, acetate) 450 mg PO DAILY Tobacco use date assessed: 07/18/24 Fall risk assessment: No Falls in past year Last assessed Fall Risk: 07/18/24 Dental Screening Dental Screen Date: 07/18/24 Did you have a dental visit in the last 12 months?: No Did you have a dental problem in the last 6 months where you did not have access to dental care?: No Was dental information given to patient?: Patient declined HPI PE HPI Details 74 year-old lady with past medical histo ry significant for hypertension, hyperlipidemia , osteopenia of multiple sites and migraine headaches, recurrent diarrhea here today for her physical exam. She is up-to-date with her screening done 02/14/24, her last bone density scan was done 05/05/22, and screening colonoscopy was done last 12/21/11. [facility] Medical History (Updated 07/18/24 @ 11:25 by Sunshine Allen MD) History of adenomatous polyp of colon Chronic nasal congestion Impaired fasting glucose Migraine Osteopenia of multiple sites Tubular adenoma of colon Surgical menopause Dyslipidemia Essential hypertension Surgical History History of section Teratoma of left ovary History of total hysterectomy Family History Father CHF (congestive heart failure) Alcoholic Mother Diabetes mellitus Brother Myocardial infarction Brother Afib Carotid artery stenosis Maternal Grandmother Diabetes mellitus Brother No problems noted. Son No problems noted. Son No problems noted. Son Substance abuse Daughter No problems noted. Daughter No problems noted. Social History Housing: House Patient Tobacco Use Status: Former Tobacco user Tobacco use type: Cigarette Cigarette Packs Per Day: 1 Years Smoked: 20 e-Cigarette/Vaping Use: Never Used Second Hand Smoke Exposure: No service: No Current occupational status: retired Cognitive needs: No Hearing needs: No Vision needs: No Questionnaire PHQ-9 Over the last 2 weeks, how often have you been bothered by any of the following problems? Depression Screening Interpretation: Negative Depression Screening Done: Yes Source: Developed by Drs. James Crocker, Yamilet Tadeo, Ernesto Chand and colleagues, with an educational zita from [employer]. Thrive Questionnaire Date Thrive assessed: 07/11/24 I am a: Patient What is your living situation today?: I have a steady place to live Within the past 12 months, did the food you bought not last and you didn't have the money to get more?: Never true Within the past 12 months, did you worry whether your food would run out before you got money to buy more?: Never true Do you have trouble paying for medicines?: No Do you have trouble getting transportation to medical appointments?: No Do you have trouble paying your heating and electricity bill?: No Do you have trouble taking care of your child, family member or friend?: No Do you have trouble with day-to-day activities such as bathing, preparing meals, shopping, managing finances, etc.?: No Are you interested in more education?: No THRIVE Score: 0 AUDIT C Alcohol Use Questionnaire (AUDIT-C) 1. How often do you have a drink containing alcohol?: Never Total Score: 0 GILMA-7 AMB Questionnaire GILMA-7 Date GILMA - 7 assessed: 01/04/24 Feeling nervous, anxious, or on edge: 0 = Not at all Not being able to stop or control worryin = Not at all Worrying too much about different things: 0 = Not at all Trouble relaxin = Not at all Being so restless that it is hard to sit still: 0 = Not at all Becoming easily annoyed or irritable: 0 = Not at all Feeling afraid as if something awful might happen: 0 = Not at all Total GILMA-7 score (0-4 normal; 5-9 mild; 10-14 moderate; 15-21 severe): 0 Source: Developed by Drs. James Crocker, Yamilet Tadeo, Ernesto Chand and colleagues, with an educational zita from [employer]. GILMA-7 Assessment Billing GILMA-7 Assessment Tool: GILMA-7 Assessment 92080 Review of Systems Const Denies body aches, Denies fatigue, Denies fever(s) and Denies weakness Eyes Details: sees [facility] Denies dizziness, Denies nasal congestion, Denies nasal discharge and Denies sore throat Card Denies chest pain, Denies lightheadedness, Denies palpitations and Denies dyspnea Resp Denies chest congestion, Denies cough and Denies dyspnea GI Denies abdominal pain, Denies heartburn and Reports diarrhea (Intermittent) Reports no additional complaints Musc Reports no additional complaints Skin/Breast Reports system reviewed and no additional complaints, except as documented, Denies breast pain, Denies breast mass and Denies rash Neuro Denies dizziness and Denies weakness Psych Reports no additional complaints Endo Denies fatigue, Denies polydipsia, Denies polyuria and Denies palpitations Jayme/Lymph Reports no additional complaints Aller/Immun Reports no additional complaints Physical exam (Primary Care) Vital Signs: Last Vital Signs Pulse 77 07/18/24 10:58 BP 138/80 07/18/24 10:58 Pulse Ox 95 07/18/24 10:58 Oxygen Delivery Method Room Air 07/18/24 10:58 BMI result Body Mass Index 26.9 Tobacco/Smoking Status: Tobacco use Status Tobacco use date assessed 07/18/24 07/18/24 11:01 Patient Tobacco Use Status Former Tobacco user 07/18/24 11:01 Tobacco use type Cigarette 07/18/24 11:01 e-Cigarette/Vaping Use Never Used 07/18/24 11:01 Depression Screening Interpretation: Negative Thrive Assessment: Date of Thrive Assessment Date Thrive assessed 07/11/24 07/18/24 11:01 Advance Care Planning discussion: Completed/Scanned Date of discussion: 07/18/24 Who was present: patient Forms completed: Health Care Proxy and MOLST Time spent: 16-45 minutes Actual minutes spent: 16 Const General: comfortable and no acute distress Orientation/consciousness: patient oriented x3 HENMT General nose exam: Normal external nose present, Normal nares present and No nasal discharge present Face and sinus: Yes face symmetric Eyes General: appearance normal, both eyes and all related structures Neck Neck: Yes full ROM, Yes no lymphadenopathy and Yes supple Thyroid: Thyroid normal Chest Chest palpation & inspection: normal inspection of the chest Breast/axilla palpation: normal palpation of the breasts Resp Auscultation: clear to auscultation bilaterally Cardio Rate: regular rate Rhythm: regular rhythm Heart sounds: S1 normal heart sound present and S2 normal heart sound present GI Palpation (GI): Soft to palpation, nontender, no guarding and no masses Auscultation: normal bowel sounds General: Yes no CVA tenderness Back/Spine/Pelvis Back: no CVA tenderness and No back tenderness Skin General skin exam: no rashes or lesions noted Neuro General: patient oriented x3, gait normal, moves all extremities, no focal motor deficits and CN's II-XI intact bilaterally Extrem General: Yes full ROM, Yes no joint enlargement, Yes no pedal edema and Yes normal gait Psych Appearance: grossly normal and well kempt Mental Status: mental status grossly normal Speech and movement: Normal speech and movement present Affect: normal affect Attitude: cooperative Thought process: Normal thought process present Coding Level of Care Code Est Pt Prev Care >65y(24789) Diagnoses Annual visit for general adult medical examination with abnormal findings Z00.01 Migraine without status migrainosus, not intractable, unspecified migraine type G43.909 Intractability: not intractable Migraine type: unspecified Status migrainosus presence: without status migrainosus Osteopenia of multiple sites M85.89 History of adenomatous polyp of colon Z86.0101 Dyslipidemia E78.5 Advanced directives, counseling/discussion Z71.89 Impaired fasting glucose R73.01 Additional Codes Vital Signs *Quality* - Advance Care Planning discussion: Completed/Scanned ([id number]) Vital Signs *Quality* - Time spent: 16-45 minutes ([id number]) GILMA-7 Assessment Billing - GILMA-7 Assessment Tool: GILMA-7 Assessment 72018 ([id number]) Assessment & Plan Assessment & Plan (1) Annual visit for general adult medical examination with abnormal findings: Code(s): Z00.01 - Encounter for general adult medical examination with abnormal findings Plan: Will check appropriate labs. Recommended dental visit every 6 months and regular eye exams, at least every 2 years. Take adequate calcium in diet and vitamin-D 3 at 2000 IU per cap once a day, in addition to weight-bearing exercises to help maintain good muscle tone and weight control. Instructed to do self-breast exam, and continue to get yearly mammogram, referred back again to [facility] for a repeat screening colonoscopy. (2) Migraine: Code(s): G43.909 - Migraine, unspecified, not intractable, without status migrainosus Category: Medical Qualifiers: Intractability: not intractable Migraine type: unspecified Status migrainosus presence: without status migrainosus Qualified Code(s): G43.909 - Migraine, unspecified, not intractable, without status migrainosus Plan: Short course for Fioricet given take only as needed no more than once or twice a day for acute migraine headaches. Continue with propranolol ER 120 mg daily and nortriptyline 50 mg at bedtime (3) Osteopenia of multiple sites: Code(s): M85.89 - Other specified disorders of bone density and structure, multiple sites Category: Medical Plan: Due for recheck on her bone density scan, ordered. Reminded patient to take adequate calcium from dietary sources take vitamin-D 3 at least 2000 units daily and reinforced importance of doing weight bearing exercises at least 15-30 minutes daily (4) History of adenomatous polyp of colon: Code(s): Z86.0101 - Personal history of adenomatous and serrated colon polyps Category: Medical Plan: Referred to GI Clinic for her repeat colonoscopy screening (5) Dyslipidemia: Code(s): E78.5 - Hyperlipidemia, unspecified Category: Medical Plan: Reviewed recent fasting lipid profile with patient with levels . Continue , in addition to adherence to low-cholesterol diet and regular exercise, at least 30 minutes 3 to 4 times a week. Advised patient to make healthy food choices, eat more fruits, vegetables, whole grains, wild caught fish and low- fat dairy. Limit amount of meat and fried or fatty food products, as well as processed foods and fast foods. Continue propranolol ER 120 mg 1 daily for prevention of migraine headaches, and nortriptyline 50 mg at bedtime. Follow-up scheduled with repeat fasting lipid panel in months. (6) Advanced directives, counseling/discussion: Code(s): Z71.89 - Other specified counseling Plan: Initiated the conversation about Advanced Directives. Advanced Directives help patients prepare for current and future decisions about their medical treatment and place of care. Discussed with patient that it is a process where a patients current condition and prognosis are reviewed, their wishes for information regarding their illness are elicited, and likely medical dilemmas are presented and options discussed. Healthcare proxy form and MOLST form completed today. These forms can be amended as needed, reviewed yearly and make changes as needed (7) Impaired fasting glucose: Code(s): R73.01 - Impaired fasting glucose Category: Medical Plan: Your previous fasting blood sugars were elevated above 100 mg/dL. Impaired glucose metabolism increases the risk for developing diabetes mellitus type 2, as well as heart attack and stroke later on. Lifestyle changes that promotes weight loss, healthy eating habits, and regular exercise are important, and can prevent the progression to diabetes Orders: Orders Lipid Panel 07/18/24 E78.5 - Hyperlipidemia, unspecified, E89.40 - Asymptomatic postprocedural ovarian failure, I10 - Essential (primary) hypertension, M85.89 - Other specified disorders of bone density and structure, multiple sites, R73.01 - Impaired fasting glucose Glucose Fasting 07/18/24 E78.5 - Hyperlipidemia, unspecified, E89.40 - Asymptomatic postprocedural ovarian failure, I10 - Essential (primary) hypertension, M85.89 - Other specified disorders of bone density and structure, multiple sites, R73.01 - Impaired fasting glucose Alanine Aminotransferase 07/18/24 E78.5 - Hyperlipidemia, unspecified, E89.40 - Asymptomatic postprocedural ovarian failure, I10 - Essential (primary) hypertension, M85.89 - Other specified disorders of bone density and structure, multiple sites, R73.01 - Impaired fasting glucose Aspartate Amino Transferase 07/18/24 E78.5 - Hyperlipidemia, unspecified, E89.40 - Asymptomatic postprocedural ovarian failure, I10 - Essential (primary) hypertension, M85.89 - Other specified disorders of bone density and structure, multiple sites, R73.01 - Impaired fasting glucose Basic Metabolic Panel Fasting 07/18/24 E78.5 - Hyperlipidemia, unspecified, E89.40 - Asymptomatic postprocedural ovarian failure, I10 - Essential (primary) hypertension, M85.89 - Other specified disorders of bone density and structure, multiple sites, R73.01 - Impaired fasting glucose XR DEXA axial skeleton 03/18/25 E89.40 - Asymptomatic postprocedural ovarian failure, M85.89 - Other specified disorders of bone density and structure, multiple sites Vitamin D 25-OH Total 07/18/24 E78.5 - Hyperlipidemia, unspecified, E89.40 - Asymptomatic postprocedural ovarian failure, I10 - Essential (primary) hypertension, M85.89 - Other specified disorders of bone density and structure, multiple sites, R73.01 - Impaired fasting glucose Medications: Refilled eydxxkgzgs-dqwafqhqsynfd-ohtk 50-300-40 mg 1 cap PO Q8H PRN 14 caps 0RF migraine headache G43.909 - Migraine, unspecified, not intractable, without status migrainosus
== END 2024-07-18 11:49 | disposition home or self-care (01) ==
PROVIDERS: PCP Internal Medicine; Visit Provider Internal Medicine
DX: Z00.01 Encounter for general adult medical examination with abnormal findings (principal); G43.909 Migraine, unspecified, not intractable, without status migrainosus; M85.89 Other specified disorders of bone density and structure, multiple sites; Z86.0101 Personal history of adenomatous and serrated colon polyps; E78.5 Hyperlipidemia, unspecified; Z71.89 Other specified counseling; R73.01 Impaired fasting glucose; Z00.00 Encounter for general adult medical examination without abnormal findings

== ENCOUNTER → 2024-07-18 10:50 | Outpatient (BNVA) | payer MEDICARE, SELFPAY | PROVIDERS: PCP Internal Medicine; Visit Provider Internal Medicine | DX: Z00.01 Encounter for general adult medical examination with abnormal findings (principal); G43.909 Migraine, unspecified, not intractable, without status migrainosus; M85.89 Other specified disorders of bone density and structure, multiple sites; E78.5 Hyperlipidemia, unspecified; R73.01 Impaired fasting glucose; Z79.899 Other long term (current) drug therapy; Z71.89 Other specified counseling; Z86.0101 Personal history of adenomatous and serrated colon polyps | CPT/HCPCS: 96127; 99397; 99497 ==

== ENCOUNTER 2025-02-16 06:31 | Outpatient (REF) | payer MEDICARE, SELFPAY ==
[2025-02-16 11:30] LABS: Alanine Aminotransferase 40 U/L (0-31); Anion Gap 15 (12-20); Aspartate Amino Transferase 23 U/L (5-31); Blood Urea Nitrogen 12 mg/dL (9-16); Calcium 9.5 mg/dL (8.4-10.2); Carbon Dioxide 23 mmol/L (22-29); Chloride 107 mmol/L (96-108); Cholesterol 153 mg/dL (<200); Estimated Glomerular Filt Rate > 60; Glucose Fasting 130 mg/dL (60-99); HDL Cholesterol 40 mg/dL (>40); LDL Cholesterol Calculated 68 mg/dL (<100); Potassium 4.1 mmol/L (3.3-5.1); Sodium 141 mmol/L (135-145); Triglycerides 226 mg/dL (<150)
[2025-02-16 11:51] LABS: Vitamin D 25-OH Total 103.3 ng/mL (>30)
== END 2025-02-16 06:32 | disposition home or self-care (01) ==
LOC: HO.HMGCLDS 06:31
PROVIDERS: PCP Internal Medicine; Visit Provider Internal Medicine
DX: E78.5 Hyperlipidemia, unspecified (principal); I10 Essential (primary) hypertension; E89.40 Asymptomatic postprocedural ovarian failure; M85.89 Other specified disorders of bone density and structure, multiple sites; R73.01 Impaired fasting glucose
CPT/HCPCS: 36415; 80048; 80061; 82306; 84450; 84460

== ENCOUNTER 2025-02-19 07:43 | Outpatient (AMB) | payer MEDICARE, SELFPAY ==
--- NOTE | 2025-02-19 08:03 | MHC.PC.OV ---
Vital Signs 02/19/25 08:07 Height 4 ft 11 in Weight 132 lb BMI 26.7 BP 138/88 Blood Pressure Location Rt brachial Position Sitting Pulse 77 Pulse Source Pulse Oximeter Pulse Oximetry (%) 94 Oxygen Delivery Method Room Air Intake Visit Reasons: 6 months follow up Intake Note: Pt is here today for her 6mo. f/u Allergies codeine [CODEINE] Allergy (Unknown, Verified 02/19/25 08:35) NAUSEA & VOMITING alendronate sodium [Fosamax] Adverse Reaction (Unknown, Verified 02/19/25 08:35) chest pain sumatriptan Adverse Reaction (Unknown, Verified 02/19/25 08:35) chest discomfort Medication List - Last Reconciled 02/19/25 by Sunshine Allen MD ascorbic acid (vitamin C) 1 g PO Q6H atorvastatin 20 mg PO DAILY jqtcytjpvi-xvtwezqkkdioh-rowe 50-300-40 mg 1 cap PO Q8H PRN calcium amino acid chelate 600mg po qd cholecalciferol (vitamin D3) 6,000 units PO DAILY fluticasone propionate 50 mcg/actuation (Flonase Allergy Relief) 2 sprays intranasal DAILY folic acid 1 mg PO DAILY lactulose 15 mL PO DAILY PRN nortriptyline 50 mg PO BEDTIME omega 6-ymn-ybn-fish oil 1,000 (120-180) mg (Fish Oil) 1 cap PO DAILY propranolol ER 120 mg PO DAILY vitamin B complex 1 tab PO DAILY vitamin E (dl, acetate) 450 mg PO DAILY Tobacco use date assessed: 02/19/25 Fall risk assessment: No Falls in past year Last assessed Fall Risk: 02/19/25 Dental Screening Dental Screen Date: 02/19/25 Did you have a dental visit in the last 12 months?: No Did you have a dental problem in the last 6 months where you did not have access to dental care?: No Was dental information given to patient?: No [facility] Medical History (Updated 02/19/25 @ 08:38 by Sunshine Allen MD) Mixed dyslipidemia History of adenomatous polyp of colon Chronic nasal congestion Impaired fasting glucose Migraine Osteopenia of multiple sites Tubular adenoma of colon Surgical menopause Essential hypertension Surgical History History of section Teratoma of left ovary History of total hysterectomy Family History Father CHF (congestive heart failure) Alcoholic Mother Diabetes mellitus Brother Myocardial infarction Brother Afib Carotid artery stenosis Maternal Grandmother Diabetes mellitus Brother No problems noted. Son No problems noted. Son No problems noted. Son Substance abuse Daughter No problems noted. Daughter No problems noted. Social History Housing: House Patient Tobacco Use Status: Former Tobacco user Tobacco use type: Cigarette Cigarette Packs Per Day: 1 Years Smoked: 20 e-Cigarette/Vaping Use: Never Used Second Hand Smoke Exposure: No service: No Current occupational status: retired Cognitive needs: No Hearing needs: No Vision needs: No Questionnaire Thrive Questionnaire Date Thrive assessed: 02/19/25 I am a: Patient What is your living situation today?: I have a steady place to live Within the past 12 months, did the food you bought not last and you didn't have the money to get more?: Never true Within the past 12 months, did you worry whether your food would run out before you got money to buy more?: Never true Do you have trouble paying for medicines?: Yes Do you have trouble getting transportation to medical appointments?: No Do you have trouble paying your heating and electricity bill?: No Do you have trouble taking care of your child, family member or friend?: No Do you have trouble with day-to-day activities such as bathing, preparing meals, shopping, managing finances, etc.?: No Are you currently unemployed and looking for a job?: No Are you interested in more education?: No Please select the resources that you would like help with: Paying for medicine Currently or been in a relationship where the following occur: No concerns reported THRIVE Score: 0 AUDIT C Alcohol Use Questionnaire (AUDIT-C) 1. How often do you have a drink containing alcohol?: Never Total Score: 0 GILMA-7 AMB Questionnaire GILMA-7 Date GILMA - 7 assessed: 02/19/25 Feeling nervous, anxious, or on edge: 0 = Not at all Not being able to stop or control worryin = Not at all Worrying too much about different things: 0 = Not at all Trouble relaxin = Not at all Being so restless that it is hard to sit still: 0 = Not at all Becoming easily annoyed or irritable: 0 = Not at all Feeling afraid as if something awful might happen: 0 = Not at all Total GILMA-7 score (0-4 normal; 5-9 mild; 10-14 moderate; 15-21 severe): 0 Source: Developed by Drs. James Crocker, Yamilet Tadeo, Ernesto Chand and colleagues, with an educational zita from [employer]. Review of Systems Const Denies body aches, Denies fatigue, Denies fever(s) and Denies weakness Eyes Details: sees [facility] Denies dizziness, Denies nasal congestion, Denies nasal discharge and Denies sore throat Card Denies chest pain, Denies lightheadedness, Denies palpitations and Denies dyspnea Resp Denies chest congestion, Denies cough and Denies dyspnea GI Denies abdominal pain, Denies heartburn and Reports diarrhea (Intermittent) Reports no additional complaints Musc Reports no additional complaints Skin/Breast Reports system reviewed and no additional complaints, except as documented, Denies breast pain, Denies breast mass and Denies rash Neuro Denies dizziness and Denies weakness Psych Reports no additional complaints Endo Denies fatigue, Denies polydipsia, Denies polyuria and Denies palpitations Jayme/Lymph Reports no additional complaints Aller/Immun Reports no additional complaints Physical exam (Primary Care) Vital Signs: Last Vital Signs Pulse 77 02/19/25 08:07 BP 138/88 02/19/25 08:07 Pulse Ox 94 02/19/25 08:07 Oxygen Delivery Method Room Air 02/19/25 08:07 BMI result Body Mass Index 26.7 Tobacco/Smoking Status: Tobacco use Status Tobacco use date assessed 02/19/25 02/19/25 08:05 Patient Tobacco Use Status Former Tobacco user 02/19/25 08:05 Tobacco use type Cigarette 02/19/25 08:05 e-Cigarette/Vaping Use Never Used 02/19/25 08:05 Thrive Assessment: Date of Thrive Assessment Date Thrive assessed 02/19/25 02/19/25 08:05 Currently or been in a relationship where the following occur: No concerns reported Const General: comfortable and no acute distress Orientation/consciousness: patient oriented x3 HENMT General nose exam: Normal external nose present, Normal nares present and No nasal discharge present Face and sinus: Yes face symmetric Eyes General: appearance normal, both eyes and all related structures Neck Neck: Yes full ROM, Yes no lymphadenopathy and Yes supple Thyroid: Thyroid normal Resp Auscultation: clear to auscultation bilaterally Cardio Rate: regular rate Rhythm: regular rhythm Heart sounds: S1 normal heart sound present and S2 normal heart sound present GI Palpation (GI): Soft to palpation, nontender, no guarding and no masses Auscultation: normal bowel sounds General: Yes no CVA tenderness Back/Spine/Pelvis Back: no CVA tenderness and No back tenderness Skin General skin exam: no rashes or lesions noted Neuro General: patient oriented x3, gait normal, moves all extremities, no focal motor deficits and CN's II-XI intact bilaterally Extrem General: Yes full ROM, Yes no joint enlargement, Yes no pedal edema and Yes normal gait Psych Appearance: grossly normal and well kempt Mental Status: mental status grossly normal Speech and movement: Normal speech and movement present Affect: normal affect Attitude: cooperative Thought process: Normal thought process present Results AMB Hemoglobin A1c AMB Hemoglobin A1c 5.8 % Last Edit by Penelope Fernandez CMA on 02/19/25 08:48 Coding Diagnoses Mixed dyslipidemia E78.2 History of adenomatous polyp of colon Z86.0101 Essential hypertension I10 Osteopenia of multiple sites M85.89 Migraine without status migrainosus, not intractable, unspecified migraine type G43.909 Intractability: not intractable Migraine type: unspecified Status migrainosus presence: without status migrainosus Impaired fasting glucose R73.01 Assessment & Plan Assessment & Plan (1) Mixed dyslipidemia: Code(s): E78.2 - Mixed hyperlipidemia Category: Medical (2) History of adenomatous polyp of colon: Code(s): Z86.0101 - Personal history of adenomatous and serrated colon polyps Category: Medical (3) Essential hypertension: Code(s): I10 - Essential (primary) hypertension Category: Medical (4) Osteopenia of multiple sites: Code(s): M85.89 - Other specified disorders of bone density and structure, multiple sites Category: Medical (5) Migraine: Code(s): G43.909 - Migraine, unspecified, not intractable, without status migrainosus Category: Medical Qualifiers: Intractability: not intractable Migraine type: unspecified Status migrainosus presence: without status migrainosus Qualified Code(s): G43.909 - Migraine, unspecified, not intractable, without status migrainosus (6) Impaired fasting glucose: Code(s): R73.01 - Impaired fasting glucose Category: Medical Orders: Orders Vitamin D 25-OH Total 08/24/25 E78.2 - Mixed hyperlipidemia, G43.909 - Migraine, unspecified, not intractable, without status migrainosus, I10 - Essential (primary) hypertension, M85.89 - Other specified disorders of bone density and structure, multiple sites, R73.01 - Impaired fasting glucose Basic Metabolic Panel Fasting 08/24/25 E78.2 - Mixed hyperlipidemia, G43.909 - Migraine, unspecified, not intractable, without status migrainosus, I10 - Essential (primary) hypertension, M85.89 - Other specified disorders of bone density and structure, multiple sites, R73.01 - Impaired fasting glucose Hemoglobin A1c 08/24/25 E78.2 - Mixed hyperlipidemia, G43.909 - Migraine, unspecified, not intractable, without status migrainosus, I10 - Essential (primary) hypertension, M85.89 - Other specified disorders of bone density and structure, multiple sites, R73.01 - Impaired fasting glucose AMB Hemoglobin A1c Today Z13.9 - Encounter for screening, unspecified Lipid Panel 08/24/25 E78.2 - Mixed hyperlipidemia, G43.909 - Migraine, unspecified, not intractable, without status migrainosus, I10 - Essential (primary) hypertension, M85.89 - Other specified disorders of bone density and structure, multiple sites, R73.01 - Impaired fasting glucose Aspartate Amino Transferase 08/24/25 E78.2 - Mixed hyperlipidemia, G43.909 - Migraine, unspecified, not intractable, without status migrainosus, I10 - Essential (primary) hypertension, M85.89 - Other specified disorders of bone density and structure, multiple sites, R73.01 - Impaired fasting glucose Alanine Aminotransferase 08/24/25 E78.2 - Mixed hyperlipidemia, G43.909 - Migraine, unspecified, not intractable, without status migrainosus, I10 - Essential (primary) hypertension, M85.89 - Other specified disorders of bone density and structure, multiple sites, R73.01 - Impaired fasting glucose Referrals Gastroenterology Referral Z86.0101 - Personal history of adenomatous and serrated colon polyps
[2025-02-19 08:07] VITALS: BP 138/88; PULSE 77; O2SAT 94; BMI 26.7
== END 2025-02-19 08:51 | disposition home or self-care (01) ==
LOC: HO.HMCC 07:43
PROVIDERS: PCP Internal Medicine; Visit Provider Internal Medicine
DX: Z13.9 Encounter for screening, unspecified (principal)

== ENCOUNTER → 2025-02-19 07:43 | Outpatient (BNVA) | payer MEDICARE, SELFPAY | PROVIDERS: PCP Internal Medicine; Visit Provider Internal Medicine | DX: E78.2 Mixed hyperlipidemia (principal); G43.909 Migraine, unspecified, not intractable, without status migrainosus; I10 Essential (primary) hypertension; M85.89 Other specified disorders of bone density and structure, multiple sites; R73.01 Impaired fasting glucose; Z87.891 Personal history of nicotine dependence; Z86.0101 Personal history of adenomatous and serrated colon polyps | CPT/HCPCS: 83036; 96127; 99212 ==

== ENCOUNTER 2025-09-12 13:00 | Outpatient (AMB) | payer MEDICARE, SELFPAY ==
--- NOTE | 2025-09-12 13:09 | MHC.PC.OV ---
Vital Signs 09/12/25 13:14 Height 4 ft 11 in Weight 129 lb BMI 26.1 BP 132/82 Blood Pressure Location Rt brachial Position Sitting Respiration 16 Pulse 85 Pulse Source Pulse Oximeter Temp 98.5 F Temp Source Oral Pulse Oximetry (%) 95 Oxygen Delivery Method Room Air Intake Visit Reasons: PE - see comments Intake Note: Pt is here today for her PE: Last mammogram 02/14/24, bone density scan 05/05/22, colonoscopy 12/21/11 Wiring Technician Required: No Allergies codeine (CODEINE) Allergy (Unknown, Verified 09/12/25 13:30) NAUSEA & VOMITING alendronate sodium (Fosamax) Adverse Reaction (Unknown, Verified 09/12/25 13:30) chest pain sumatriptan Adverse Reaction (Unknown, Verified 09/12/25 13:30) chest discomfort Medication List - Last Reconciled 09/12/25 by Sunshine Allen MD ascorbic acid (vitamin C) 1 g PO Q6H atorvastatin 20 mg PO DAILY vzcmlfqeaq-frsivcuyhvmmx-sozg 50-300-40 mg 1 cap PO Q8H PRN calcium amino acid chelate 600mg po qd cholecalciferol (vitamin D3) 6,000 units PO DAILY fluticasone propionate 50 mcg/actuation (Flonase Allergy Relief) 2 sprays intranasal DAILY folic acid 1 mg PO DAILY lactulose 15 mL PO DAILY PRN nortriptyline 50 mg PO BEDTIME omega 1-wbg-fcc-fish oil 1,000 (120-180) mg (Fish Oil) 1 cap PO DAILY propranolol ER 120 mg PO DAILY vitamin B complex 1 tab PO DAILY vitamin E (dl, acetate) 450 mg PO DAILY Tobacco use date assessed: 09/12/25 Fall risk assessment: No Falls in past year Last assessed Fall Risk: 09/12/25 Dental Screening Dental Screen Date: 09/12/25 Did you have a dental visit in the last 12 months?: No Did you have a dental problem in the last 6 months where you did not have access to dental care?: No Was dental information given to patient?: Patient declined HPI PE - see comments HPI Details 75-year-old female with history of dyslipidemia, migraine headache, constipation, impaired fasting glucose, osteopenia and hypertension here today for her physical exam. Patient Appointment for mammogram and bone density scan no rescheduled last 02/26/2025 and missed her appointment with GI for repeat colonoscopy screening this fall. Patient advised to call their offices and reschedule appointments. She has been feeling well, compliant with taking her medications. Complains of occasional difficulty with holding her urine, occasional leaking when she could not find a bathroom in time. Denies any urinary frequency urgency or dysuria. [facility] Medical History Mixed dyslipidemia History of adenomatous polyp of colon Chronic nasal congestion Impaired fasting glucose Migraine Osteopenia of multiple sites Tubular adenoma of colon Surgical menopause Essential hypertension Surgical History History of section Teratoma of left ovary History of total hysterectomy Family History Father CHF (congestive heart failure) Alcoholic Mother Diabetes mellitus Brother Myocardial infarction Brother Afib Carotid artery stenosis Maternal Grandmother Diabetes mellitus Brother No problems noted. Son No problems noted. Son No problems noted. Son Substance abuse Daughter No problems noted. Daughter No problems noted. Social History Housing: House Patient Tobacco Use Status: Former Tobacco user Tobacco use type: Cigarette Cigarette Packs Per Day: 1 Years Smoked: 20 e-Cigarette/Vaping Use: Never Used Second Hand Smoke Exposure: No service: No Current occupational status: retired Cognitive needs: No Hearing needs: No Vision needs: No Questionnaire PHQ-9 Over the last 2 weeks, how often have you been bothered by any of the following problems? 1. Little interest or pleasure in doing things: not at all 2. Feeling down, depressed, or hopeless: not at all 3. Trouble falling or staying asleep, or sleeping too much: several days 4. Feeling tired or having little energy: not at all 5. Poor appetite or overeating: not at all 6. Feeling bad about yourself - or that you are a failure or have let yourself or your family down: not at all 7. Trouble concentrating on things, such as reading the newspaper or watching television: not at all 8. Moving or speaking so slowly that other people could have noticed. Or the opposite - being so fidgety or restless that you have been moving around a lot more than usual: not at all 9. Thoughts that you would be better off or of hurting yourself in some way: not at all Total score: 1 Depression Screening Interpretation: Negative Depression Screening Done: Yes Source: Developed by Drs. James Crocker, Yamilet Tadeo, Ernesto Chand and colleagues, with an educational zita from [employer]. Thrive Questionnaire Date Thrive assessed: 02/12/25 I am a: Patient What is your living situation today?: I have a steady place to live Within the past 12 months, did the food you bought not last and you didn't have the money to get more?: Never true Within the past 12 months, did you worry whether your food would run out before you got money to buy more?: Never true Do you have trouble paying for medicines?: Yes Do you have trouble getting transportation to medical appointments?: No Do you have trouble paying your heating and electricity bill?: No Do you have trouble taking care of your child, family member or friend?: No Do you have trouble with day-to-day activities such as bathing, preparing meals, shopping, managing finances, etc.?: No Are you currently unemployed and looking for a job?: No Are you interested in more education?: No Please select the resources that you would like help with: Paying for medicine Currently or been in a relationship where the following occur: No concerns reported THRIVE Score: 0 AUDIT C Alcohol Use Questionnaire (AUDIT-C) 1. How often do you have a drink containing alcohol?: Never Total Score: 0 GILMA-7 AMB Questionnaire GILMA-7 Date GILMA - 7 assessed: 02/19/25 Feeling nervous, anxious, or on edge: 0 = Not at all Not being able to stop or control worryin = Not at all Worrying too much about different things: 0 = Not at all Trouble relaxin = Not at all Being so restless that it is hard to sit still: 0 = Not at all Becoming easily annoyed or irritable: 0 = Not at all Feeling afraid as if something awful might happen: 0 = Not at all Total GILMA-7 score (0-4 normal; 5-9 mild; 10-14 moderate; 15-21 severe): 0 Source: Developed by Drs. James Crocker, Yamilet Tadeo, Ernesto Chand and colleagues, with an educational zita from [employer]. Review of Systems Const Denies body aches, Denies fatigue, Denies fever(s) and Denies weakness Eyes Details: Goes to [facility] Details: Has dentures Denies dizziness, Denies nasal congestion, Denies nasal discharge and Denies sore throat Card Denies chest pain, Denies lightheadedness, Denies palpitations and Denies dyspnea Resp Denies chest congestion, Denies cough and Denies dyspnea GI Denies abdominal pain and Denies heartburn Reports as per HPI Musc Reports no additional complaints Skin/Breast Denies breast pain, Denies breast mass and Denies rash Neuro Denies dizziness and Denies weakness Psych Reports no additional complaints Endo Denies fatigue, Denies polydipsia, Denies polyuria and Denies palpitations Jayme/Lymph Reports no additional complaints Aller/Immun Reports no additional complaints Physical exam (Primary Care) Vital Signs: Last Vital Signs Temp 98.5 F 09/12/25 13:14 Pulse 85 09/12/25 13:14 Resp 16 09/12/25 13:14 BP 132/82 09/12/25 13:14 Pulse Ox 95 09/12/25 13:14 Oxygen Delivery Method Room Air 09/12/25 13:14 BMI result Body Mass Index 26.1 Tobacco/Smoking Status: Tobacco use Status Tobacco use date assessed 09/12/25 09/12/25 13:13 Patient Tobacco Use Status Former Tobacco user 09/12/25 13:13 Tobacco use type Cigarette 09/12/25 13:13 e-Cigarette/Vaping Use Never Used 09/12/25 13:13 Depression Screening Interpretation: Negative Thrive Assessment: Date of Thrive Assessment Date Thrive assessed 02/12/25 09/12/25 13:13 Currently or been in a relationship where the following occur: No concerns reported Const General: comfortable and no acute distress Orientation/consciousness: patient oriented x3 [facility] General nose exam: Normal external nose present, Normal nares present and No nasal discharge present Face and sinus: Yes face symmetric Eyes General: appearance normal, both eyes and all related structures Neck Neck: Yes full ROM, Yes no lymphadenopathy and Yes supple Thyroid: Thyroid normal Chest Chest palpation & inspection: normal inspection of the chest Breast/axilla inspection: normal inspection of the breasts Breast/axilla palpation: normal palpation of the breasts Resp Auscultation: clear to auscultation bilaterally Cardio Rate: regular rate Rhythm: regular rhythm Heart sounds: S1 normal heart sound present and S2 normal heart sound present GI Palpation (GI): Soft to palpation, nontender, no guarding and no masses Auscultation: normal bowel sounds General: Yes no CVA tenderness Back/Spine/Pelvis Back: no CVA tenderness and No back tenderness Skin Other: Rodriguez to dark brown macules scattered on back and chest General skin exam: no rashes or lesions noted Neuro General: patient oriented x3, gait normal, moves all extremities, no focal motor deficits and CN's II-XI intact bilaterally Extrem General: Yes full ROM, Yes no joint enlargement, Yes no pedal edema and Yes normal gait Psych Appearance: grossly normal and well kempt Mental Status: mental status grossly normal Speech and movement: Normal speech and movement present Affect: normal affect Coding Level of Care Code Est Pt Prev Care >65y(81455) Diagnoses Annual visit for general adult medical examination with abnormal findings Z00. Osteopenia of multiple sites M85.89 Migraine without status migrainosus, not intractable, unspecified migraine type G43.909 Migraine type: unspecified Status migrainosus presence: without status migrainosus Intractability: not intractable Impaired fasting glucose R73.01 History of adenomatous polyp of colon Z86.0101 Mixed dyslipidemia E78.2 Urinary incontinence R32 Essential hypertension I10 Assessment & Plan Assessment & Plan (1) Annual visit for general adult medical examination with abnormal findings: Code(s): Z00.01 - Encounter for general adult medical examination with abnormal findings Plan: Will check appropriate labs. She goes to [facility] for her routine eye exam, wears dentures no longer gets dental prophylaxis. Take adequate calcium in diet and vitamin-D 3 at 2000 IU per cap once a day, in addition to weight-bearing exercises to help maintain good muscle tone and weight control. Instructed to do self-breast exam, and advised to reschedule her screening mammogram and bone density scan appointment that she missed 02/26/2025. Up-to-date with all her vaccines, advised to get the shingles vaccine (2) Osteopenia of multiple sites: Code(s): M85.89 - Other specified disorders of bone density and structure, multiple sites Category: Medical Plan: Had an appointment to do a bone density scan together with her mammogram last 02/26/2025 but missed it due to an illness. [facility] for bone density and mammogram. Continue taking vitamin-D 3 supplements and calcium supplements and do regular weight-bearing exercise (3) Migraine: Code(s): G43.909 - Migraine, unspecified, not intractable, without status migrainosus Category: Medical Qualifiers: Migraine type: unspecified Status migrainosus presence: without status migrainosus Intractability: not intractable Qualified Code(s): G43.909 - Migraine, unspecified, not intractable, without status migrainosus Plan: Controlled with propranolol ER 120 mg daily and nortriptyline 50 mg at bedtime. Takes ferrous it as needed for acute attacks of migraines (4) Impaired fasting glucose: Code(s): R73.01 - Impaired fasting glucose Category: Medical Plan: Your previous fasting blood sugars were elevated above 100 mg/dL. Impaired glucose metabolism increases the risk for developing diabetes mellitus type 2, as well as heart attack and stroke later on. Lifestyle changes that promotes weight loss, healthy eating habits, and regular exercise are important, and can prevent the progression to diabetes (5) History of adenomatous polyp of colon: Code(s): Z86.0101 - Personal history of adenomatous and serrated colon polyps Category: Medical Plan: Has history of tubular adenoma polyp removed by Dr. Foss, overdue for repeat colonoscopy. Reminded patient to reschedule her appointment for her colonoscopy, already ordered. Copy of number to the GI clinic at [place] given (6) Mixed dyslipidemia: Code(s): E78.2 - Mixed hyperlipidemia Category: Medical Plan: Reminded patient to get her fasting labs done, continue with taking atorvastatin and [place] 3 fatty acid supplements in addition to adhering to a low-cholesterol diet and getting regular exercise at least 15 minutes of moderate intensity exercise daily. Will see her back for follow-up in January 2026 (7) Urinary incontinence: Code(s): R32 - Unspecified urinary incontinence Category: Medical Plan: Prescription sent for Myrbetriq 25 mg per tablet to take once a day. (8) Essential hypertension: Code(s): I10 - Essential (primary) hypertension Category: Medical Plan: Continue with propranolol ER 120 mg daily Medications: New Myrbetriq ER (mirabegron) 25 mg PO DAILY 30 tabs 3RF NS R32 - Unspecified urinary incontinence
[2025-09-12 13:14] VITALS: BP 132/82; PULSE 85; RESP 16; TEMP 36.9; O2SAT 95; BMI 26.1
== END 2025-09-12 13:58 | disposition home or self-care (01) ==
LOC: HO.HMCC 13:01
PROVIDERS: PCP Internal Medicine; Visit Provider Internal Medicine
DX: Z00.01 Encounter for general adult medical examination with abnormal findings (principal); M85.89 Other specified disorders of bone density and structure, multiple sites; G43.909 Migraine, unspecified, not intractable, without status migrainosus; R73.01 Impaired fasting glucose; Z86.0101 Personal history of adenomatous and serrated colon polyps; E78.2 Mixed hyperlipidemia; R32 Unspecified urinary incontinence; I10 Essential (primary) hypertension

== ENCOUNTER → 2025-09-12 13:00 | Outpatient (BNVA) | payer MEDICARE, SELFPAY | PROVIDERS: PCP Internal Medicine; Visit Provider Internal Medicine | DX: Z00.01 Encounter for general adult medical examination with abnormal findings (principal); E78.5 Hyperlipidemia, unspecified; G43.909 Migraine, unspecified, not intractable, without status migrainosus; I10 Essential (primary) hypertension; R32 Unspecified urinary incontinence; M85.89 Other specified disorders of bone density and structure, multiple sites; R73.01 Impaired fasting glucose; E78.2 Mixed hyperlipidemia; Z86.0101 Personal history of adenomatous and serrated colon polyps | CPT/HCPCS: 96127; 99397 ==